=== PATIENT | female | born 1980 | race Caucasian/White ===

== ENCOUNTER 2017-10-17 16:48 | Emergency (ER) | payer MEDICAID ==
[~2017-10-17] VITALS: Ht 170.2 cm; Wt 71.2 kg
--- NOTE | 2017-10-17 16:50 | NUR ---
PT TO ED DT SOB POSS ASTHMA. PATIENT IN NO APPARENT DISTRESS. VSS
[2017-10-17] MEDS ORDERED: ALBUTEROL FS 2.5 MG/3 ML VIAL.NEB CONTNEB ONE (17:00)
[2017-10-17] MEDS ORDERED: predniSONE 20 MG TABLET PO ONE (17:00)
[2017-10-17] MEDS ORDERED: IPRATROPIUM NEB FS 0.5 MG/2.5 ML AMPUL.NEB NEB ONE (17:00)
[2017-10-17] MEDS ORDERED: ALBUTEROL FS 2.5 MG/3 ML VIAL.NEB NEB ONE (17:00)
[2017-10-17] MEDS ORDERED: predniSONE 20 MG TABLET ONE (17:04)
[2017-10-17] MEDS ORDERED: ALBUTEROL FS 2.5 MG/3 ML VIAL.NEB ONE (17:06)
[2017-10-17] MEDS ORDERED: IPRATROPIUM NEB FS 0.5 MG/2.5 ML AMPUL.NEB ONE (17:06)
[2017-10-17 18:17] VITALS: BP 130/60
--- NOTE | 2017-10-17 18:18 | NUR ---
Patient discharged to home in stable condition. Written and verbal after care instructions given. Patient verbalizes understanding of instruction.
== END 2017-10-17 18:19 | disposition home or self-care (01) ==
LOC: ER 16:51
DX: J45.901 Unspecified asthma with (acute) exacerbation (principal); F17.210 Nicotine dependence, cigarettes, uncomplicated
CPT/HCPCS: 94640 ×2; 99291; 99406; A4606; J7512; Z7610